=== PATIENT | male | born 1975 | race Two or more races ===

== ENCOUNTER 2018-05-17 19:10 | Emergency (ER) | payer BC, OTHER ==
[~2018-05-17] VITALS: Ht 182.9 cm; Wt 95.3 kg
[2018-05-17 19:33] VITALS: BP 145/79
[2018-05-17] MEDS ORDERED: cefTRIAXone SOD 1,000 MG VL IM ONE (20:45)
[2018-05-17] MEDS ORDERED: AMOXICILLIN/CLAVUL 875 MG TAB PO ONE (20:45)
[2018-05-17] MEDS ORDERED: TETANUS-DIPTH-ACEL PERTUSSIS 0.5ML SYRG IM ONE (20:45)
[2018-05-17] MEDS ORDERED: HYDROcodone-ACET 10/325MG TAB PO ONE (20:45)
[2018-05-17] MEDS ORDERED: LIDOCAINE W/ EPINEPHRINE 2% INJ 20ML VIAL IJ ONE (20:45)
== END 2018-05-17 21:38 | disposition home or self-care (01) ==
LOC: ER 19:15
DX: S61.411A Laceration without foreign body of right hand, initial encounter (principal); W54.0XXA Bitten by dog, initial encounter; Y93.01 Activity, walking, marching and hiking; Y92.89 Other specified places as the place of occurrence of the external cause; Y99.8 Other external cause status
CPT/HCPCS: 12004; 73130; 90471; 90715; 96372; 99283; J0696